=== PATIENT | female | born 1945 | race Caucasian/White ===

== ENCOUNTER → 2017-06-04 | Day surgery (SDC) | payer OTHER ==
[2017-06-03 12:11] VITALS: BMI 33.3
[2017-06-04 18:40] VITALS: BP 141/66; PULSE 90
[2017-06-04 19:02] VITALS: TEMP 98.8
== END | disposition home or self-care (01) ==
LOC: JASU-SURG 09:29
PROVIDERS: ATTEND Plastic Surgery
PROC: 0JX10ZZ Transfer Face Subcutaneous Tissue and Fascia, Open Approach (ICD-10-PCS; principal; 2017-06-04)
PROC: 0HX1XZZ Transfer Face Skin, External Approach (ICD-10-PCS; 2017-06-04)
PROC: 0JX10ZB Transfer Face Subcutaneous Tissue and Fascia with Skin and Subcutaneous Tissue, Open Approach (ICD-10-PCS; 2017-06-04)
DX: C44.311 Basal cell carcinoma of skin of nose (principal)
CPT/HCPCS: 94760